=== PATIENT | female | born 1955 | race Caucasian/White ===

== ENCOUNTER 2020-04-17 08:41 | Emergency (ER) | payer MEDICARE, OTHER ==
[~2020-04-17] VITALS: Ht 165.1 cm; Wt 75.9 kg
[2020-04-17] MEDS ORDERED: ZETIA10 MG PO (09:12)
[2020-04-17] MEDS ORDERED: VITAMIN E400 UNIT PO (09:13)
[2020-04-17] MEDS ORDERED: VITAMIN B-12500 MCG PO (09:13)
[2020-04-17] MEDS ORDERED: VITAMIN D1000 UNIT PO (09:18)
[2020-04-17] MEDS ORDERED: IBUPROFEN600 MG PO (11:29)
[2020-04-17 11:32] VITALS: BP 173/70
== END 2020-04-17 11:41 | disposition home or self-care (01) ==
LOC: ED 08:41
DX: M25.472 Effusion, left ankle (principal); M25.572 Pain in left ankle and joints of left foot; Z86.718 Personal history of other venous thrombosis and embolism